=== PATIENT | female | born 1965 | race Caucasian/White ===

== ENCOUNTER 2018-10-06 09:48 | Emergency (ER) | payer OTHER ==
[~2018-10-06] VITALS: Ht 162.6 cm; Wt 57.6 kg
== END 2018-10-06 11:51 | disposition home or self-care (01) ==
LOC: ER 09:48
DX: N30.80 Other cystitis without hematuria (principal)

== ENCOUNTER 2018-10-22 07:14 | Emergency (ER) | payer OTHER ==
[~2018-10-22] VITALS: Ht 162.6 cm; Wt 56.7 kg
[2018-10-22] MEDS ORDERED: CIPRO500 MG PO (11:12)
== END 2018-10-22 13:19 | disposition home or self-care (01) ==
LOC: ER 07:14
DX: N39.0 Urinary tract infection, site not specified (principal); B96.29 Other Escherichia coli [E. coli] as the cause of diseases classified elsewhere

== ENCOUNTER 2018-10-28 10:02 | Emergency (ER) | payer OTHER ==
[~2018-10-28] VITALS: Ht 162.6 cm; Wt 56.7 kg
[~2018-10-28 10:02] MED LIST: CIPRO500 MG PO
== END 2018-10-28 13:00 | disposition home or self-care (01) ==
LOC: ER 10:02
DX: N39.0 Urinary tract infection, site not specified (principal)